=== PATIENT | female | born 1965 | race Caucasian/White ===

== ENCOUNTER 2018-03-04 14:12 | Observation (INO) | payer OTHER ==
[~2018-03-04] VITALS: Ht 162.6 cm; Wt 60.9 kg
[2018-03-04] MEDS ORDERED: ONDANSETRON INJ 2 MG/ML 2 ML VIAL IV STA (14:33)
[2018-03-04] MEDS ORDERED: SODIUM CHLORIDE 0.9% 1000ML 1,000 ML IV STA ×2 (14:33→16:37)
[2018-03-04] MEDS ORDERED: MULT-506 PO (14:51)
[2018-03-04 15:16] LABS: BASO % 0.8 %; BASO ABS # 0.05 K/uL (0-0.2); EOS % 0.2 %; EOS ABS # 0.01 K/uL (0-0.5); HEMATOCRIT 46.1 % (37-47); HEMOGLOBIN 15.8 g/dL (12.0-16.0); IG# 0.02 K/uL (0.00-0.02); LYMPH % 17.8 %; LYMPH ABS # 1.06 K/uL (1.2-3.4); MEAN CELL VOLUME 91.7 fL (80-100); MEAN CORPUSCULAR HEMOGLOBIN 31.4 pg (25-34); MEAN CORPUSCULAR HGB CONC 34.3 g/dl (32-36); MEAN PLATELET VOLUME 9.1 fL (7.4-10.4); MONO % 2.2 %; MONO ABS # 0.13 K/uL (0.11-0.59); NEUT % 78.7 %; NEUT ABS # 4.68 K/uL (1.4-6.5); PLATELET COUNT 336 K/uL (130-400); RED CELL DISTRIBUTION WIDTH CV 14.2 % (11.5-14.5); RED CELL DISTRIBUTION WIDTH SD 48.1 fL (36.4-46.3); WHITE BLOOD COUNT 5.95 K/uL (4.8-10.8)
--- NOTE | 2018-03-04 15:57 | DIAGNOSTIC IMAGING REPORT ---
ABDOMEN 2VIEW W/PA CHEST RTN CLINICAL HISTORY: Nausea and vomiting COMPARISON STUDY: No previous studies for comparison. FINDINGS: The erect chest reveals no free air. There is no focal pulmonary consolidation. There are no abnormally dilated loops of large or small bowel. There is moderate stool within the right colon. IMPRESSION: No evidence of bowel obstruction. No evidence of free air. Electronically signed by: Renny Durant M.D. 03/04/2018 3:55 PM Dictated Date/Time: 03/04/2018 3:55 PM
[2018-03-04 16:15] LABS: ALBUMIN 4.8 gm/dl (3.4-5.0); CALCIUM 8.5 mg/dl (8.5-10.1); CREATININE 0.69 mg/dl (0.60-1.20); POTASSIUM 3.8 mmol/L (3.5-5.1); TOTAL PROTEIN 8.2 gm/dl (6.4-8.2)
[2018-03-04] MEDS ORDERED: ALUMINUM/MAGNESIUM SUSP 30 ML UDC PO STA (16:53)
[2018-03-04] MEDS ORDERED: FAMOTIDINE 20MG/5ML IV PUSH IV STA (16:53)
[2018-03-04] MEDS ORDERED: ASPIRIN 325 MG ECTAB PO STA (16:53)
[2018-03-04] MEDS ORDERED: MULTI-VITAMIN INFUSION INJ 10 ML, THIAMINE HCL INJ 100 MG, FoLIC ACID INJ 1 MG in SODIU... IV ONE (17:00)
--- NOTE | 2018-03-04 17:20 | EMERGENCY ROOM VISIT NOTE ---
History Report prepared by Yari: Sampson Julio Under the Supervision of: Dr. Mitzy Becerra D.O. First contact with patient: 14:22 Chief Complaint: OTHER COMPLAINT Stated Complaint: UNDER THE INFLUENCE OF ALCOHOL, POSSIBLE POISONING History of Present Illness The patient is a 52 year old female who presents to the Emergency Room with complaints of a severe and constant migraine headache that began this morning after a long day of drinking yesterday. The patient notes that she has a history of alcohol abuse and admits that; "I am an alcoholic." She states that she stopped drinking "a lot of years ago" but decided that she was going to drink again this weekend as she was in [place] visiting family. The patient drank all day yesterday and drank a lot. 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 The patient is currently complaining of a migraine headache as well as nausea. She denies any vomiting or diarrhea. She does get migraines even when she does not drink, and has been worked up for her migraines in the past. The patient notes that she has withdrawn before and has experienced DTs. She has also used inpatient rehabilitation facilities for her alcoholism. Source of History: patient Onset: This morning Position: head Quality: ache (headache) Timing: constant Associated Symptoms: + nausea, No vomiting, No diarrhea Review of Systems See HPI for pertinent positives & negatives. A total of 10 systems reviewed and were otherwise negative. Social History Smoking Status: Never Smoker Alcohol Use: heavy Drug Use: none Housing Status: lives with family Current/Historical Medications Scheduled Multivitamin (Multivitamin), 1 TAB PO DAILY Allergies Coded Allergies: Beef (Unverified Allergy, Unknown, hive, 03/04/18) Dairy (Unverified Allergy, Unknown, gi, 03/04/18) Pork (Unverified Allergy, Unknown, hive, 03/04/18) Uncoded Allergies: NIGHTSHADE PLANTS (Allergy, Unknown, unk, 03/04/18) Physical Exam Vital Signs Date Time Temp Pulse Resp B/P (MAP) Pulse Ox O2 Delivery O2 Flow Rate FiO2 03/04/18 16:26 36.6 87 21 129/77 97 Room Air 03/04/18 16:26 36.6 87 21 129/77 97 Room Air 03/04/18 15:09 69 18 120/74 92 Room Air 7/30/18 14:16 36.9 92 18 140/90 96 Room Air Physical Exam GENERAL: alert, well appearing, well nourished, no distress, non-toxic EYE EXAM: normal conjunctiva, PERRL and EOM's grossly intact OROPHARYNX: no exudate, no erythema, lips, buccal mucosa, and tongue normal and mucous membranes are moist NECK: supple, no nuchal rigidity, no adenopathy, non-tender LUNGS: Clear to auscultation. Normal chest wall mechanics HEART: no murmurs, S1 normal and S2 normal ABDOMEN: abdomen soft, non-tender, normo-active bowel sounds, no masses, no rebound or guarding. BACK: Back is symmetrical on inspection and there is no deformity, no midline tenderness, no CVA tenderness. SKIN: no rashes and no bruising UPPER EXTREMITIES: upper extremities are grossly normal. LOWER EXTREMITIES: No pitting edema. NEURO EXAM: Normal sensorium, cranial nerves II-XII intact, normal speech, no weakness of arms, no weakness of legs. Bilateral ataxia of upper extremities. Heel to potts intact with bilateral ataxia. Gross sensation intact. Medical Decision & Procedures ER Provider Diagnostic Interpretation: Radiology results have been interpreted by the radiologist and reviewed by me. ABDOMEN 2VIEW W/PA CHEST RTN CLINICAL HISTORY: Nausea and vomiting COMPARISON STUDY: No previous studies for comparison. FINDINGS: The erect chest reveals no free air. There is no focal pulmonary consolidation. There are no abnormally dilated loops of large or small bowel. There is moderate stool within the right colon. IMPRESSION: No evidence of bowel obstruction. No evidence of free air. Electronically signed by: Renny Durant M.D. 03/04/2018 3:55 PM Dictated Date/Time: 03/04/2018 3:55 PM Laboratory Results 03/04/18 14:56 Red Blood Count 5.03, Mean Corpuscular Volume 91.7, Mean Corpuscular Hemoglobin 31.4, Mean Corpuscular Hemoglobin Concent 34.3, Mean Platelet Volume 9.1, Neutrophils (%) (Auto) 78.7, Lymphocytes (%) (Auto) 17.8, Monocytes (%) (Auto) 2.2, Eosinophils (%) (Auto) 0.2, Basophils (%) (Auto) 0.8, Neutrophils # (Auto) 4.68, Lymphocytes # (Auto) 1.06, Monocytes # (Auto) 0.13, Eosinophils # (Auto) 0.01, Basophils # (Auto) 0.05 03/04/18 14:56 Test 03/04/18 14:56 White Blood Count 5.95 K/uL (4.8-10.8) Red Blood Count 5.03 M/uL (4.2-5.4) Hemoglobin 15.8 g/dL (12.0-16.0) Hematocrit 46.1 % (37-47) Mean Corpuscular Volume 91.7 fL (80-100) Mean Corpuscular Hemoglobin 31.4 pg (25-34) Mean Corpuscular Hemoglobin Concent 34.3 g/dl (32-36) Platelet Count 336 K/uL (130-400) Mean Platelet Volume 9.1 fL (7.4-10.4) Neutrophils (%) (Auto) 78.7 % Lymphocytes (%) (Auto) 17.8 % Monocytes (%) (Auto) 2.2 % Eosinophils (%) (Auto) 0.2 % Basophils (%) (Auto) 0.8 % Neutrophils # (Auto) 4.68 K/uL (1.4-6.5) Lymphocytes # (Auto) 1.06 K/uL (1.2-3.4) Monocytes # (Auto) 0.13 K/uL (0.11-0.59) Eosinophils # (Auto) 0.01 K/uL (0-0.5) Basophils # (Auto) 0.05 K/uL (0-0.2) RDW Standard Deviation 48.1 fL (36.4-46.3) RDW Coefficient of Variation 14.2 % (11.5-14.5) Immature Granulocyte % (Auto) 0.3 % Immature Granulocyte # (Auto) 0.02 K/uL (0.00-0.02) Prothrombin Time 10.0 SECONDS (9.0-12.0) Prothromb Time International Ratio 1.0 (0.9-1.1) Anion Gap 10.0 mmol/L (3-11) Est Creatinine Clear Calc Drug Dose 80.5 ml/min Estimated GFR () 114.4 Estimated GFR (Non- 98.7 BUN/Creatinine Ratio 9.1 (10-20) Calcium Level 8.5 mg/dl (8.5-10.1) Magnesium Level 2.5 mg/dl (1.8-2.4) Total Bilirubin 0.2 mg/dl (0.2-1) Aspartate Amino Transf (AST/SGOT) 34 U/L (15-37) Alanine Aminotransferase (ALT/SGPT) 29 U/L (12-78) Alkaline Phosphatase 54 U/L (45-117) Total Creatine Kinase 186 U/L (26-192) Total Protein 8.2 gm/dl (6.4-8.2) Albumin 4.8 gm/dl (3.4-5.0) Globulin 3.4 gm/dl (2.5-4.0) Albumin/Globulin Ratio 1.4 (0.9-2) Lipase 471 U/L (73-393) Thyroid Stimulating Hormone (TSH) 0.879 uIu/ml (0.300-4.500) Ethyl Alcohol mg/dL 343.1 mg/dl (0-3) Laboratory results per my review. Medications Administered Medications (Trade) Dose Ordered Sig/Micky Route Start Time Stop Time Status Last Admin Dose Admin Sodium Chloride 1,000 ml @ 999 mls/hr Q1H1M STAT IV 03/04/18 14:33 03/04/18 15:33 DC 03/04/18 15:08 999 MLS/HR Ondansetron HCl (Zofran Inj) 4 mg NOW STAT IV 03/04/18 14:33 03/04/18 14:36 DC 03/04/18 15:08 4 MG Sodium Chloride 1,000 ml @ 999 mls/hr Q1H1M STAT IV 03/04/18 16:37 03/04/18 17:37 DC 03/04/18 16:37 999 MLS/HR Famotidine (Pepcid 20mg Iv Push) 20 mg ONE STAT IV 03/04/18 16:53 03/04/18 16:55 DC 03/04/18 17:56 20 MG Aspirin (Ecotrin Tab) 325 mg NOW STAT PO 03/04/18 16:53 03/04/18 16:55 DC 03/04/18 17:56 325 MG Al Hydroxide/Mg Hydroxide (Maalox Susp) 15 ml NOW STAT PO 03/04/18 16:53 03/04/18 16:55 DC 03/04/18 17:56 15 ML Multivitamins 10 ml/Thiamine HCl 100 mg/Folic Acid 1 mg/Sodium Chloride 1,011.2 ml @ 200 mls/ hr Q5H4M ONCE IV 03/04/18 17:00 03/04/18 22:03 DC 03/04/18 17:57 200 MLS/HR ECG Per My Interpretation Indication: toxicologic Rate (beats per minute): 74 Rhythm: normal sinus Findings: no acute ischemic change, other (normal axis, normal intervals) ED Course 1423: The patient was evaluated in room B5. A complete history and physical exam was performed. 1433: Zofran 4mg IV. Sodium Chloride 1000 ml @ 999 mls/hr IV. 1637: Sodium Chloride 1000 ml @ 999 mls/hr IV. 1646: I reevaluated the patient at this time. She is stable. She admitted to intermittent chest pain over the past 6 months that she treated with TUMS. 1653: Maalox 15 ml PO. Aspirin 325 mg PO. Pepcid 20 mg IV. 1656: Discussed the case Tova MELENDEZ-Hospitalist. She will evaluate the patient for further treatment. Medical Decision Differential diagnosis: Etiologies such as alcohol intoxication, alcohol withdrawal, trauma, dehydration , toxicologic, infection, hypoglycemia, electrolyte abnormalities, cardiac sources, intracerebral event, neurologic, as well as others were entertained. No significant evidence of acute alcohol withdrawal, patient still markedly intoxicated here. Concerned given abnormal troponin and patient's admission of intermittent chest pain over the last 6 months which she thought was related to GERD. While it is possible she has GERD/esophagitis related to her alcohol abuse, we cannot safely rule out cardiac etiology without additional testing. This was discussed with the patient and her family at bedside and she was agreeable with plan for additional evaluation and treatment by the hospitalist and likely cardiology consultation. Patient with no known risk factors for CAD. I do not suspect PE, pericarditis/myocarditis, pericardial effusion or tamponade, or occult infectious etiology. No EKG changes noted. No evidence of STEMI. Patient heme dynamically stable throughout. Case discussed with hospitalist for additional evaluation and treatment. Medication Reconcilliation Current Medication List: was personally reviewed by me Blood Pressure Screening Patient's blood pressure: Normal blood pressure Consults Time Called: 1651 Consulting Physician: Tova MELENDEZ Hospitalist Returned Call: 1655 Discussed the case Tova MELENDEZ-Hospitalist. She will evaluate the patient for further treatment. Impression Primary Impression: Chest pain Additional Impressions: Alcohol abuse Alcohol intoxication Elevated troponin Scribe Attestation The scribe's documentation has been prepared under my direction and personally reviewed by me in its entirety. I confirm that the note above accurately reflects all work, treatment, procedures, and medical decision making performed by me. Departure Information Dispostion Being Evaluated By Hospitalist Patient Instructions My [facility] Problem Qualifiers Primary Impression: Chest pain Chest pain type: unspecified Qualified Codes: R07.9 - Chest pain, unspecified Additional Impressions: Alcohol intoxication Complication of substance-induced condition: uncomplicated Qualified Codes: F10.920 - Alcohol use, unspecified with intoxication, uncomplicated
--- NOTE | 2018-03-04 17:29 | History and Physical ---
History & Physical Date & Time of Service: Mar 04, 2018 at 17:29 Chief Complaint: Under The Influence Of Alcohol, Possible Poisoning Primary Care Physician: No Doctor, Assigned History of Present Illness Source: patient, family 52 year old F with 3 days of reported binge drinking of alcohol. Reports chronic alcohol use since young age Unclear with her history whether she had passed out suddenly versus sleeping off the alcohol use Was brought to the emergency room by family members for malaise Such as migraine headache Also reported chest discomfort which she has in the pass attributed to heartburn but she is not quite sure whether this is a different chest sensation Denies family history of heart problems Denies cardiac history Normal sinus rhythm EKG and no EKG signs of ischemia x 2. However initial troponin 0.046 which is mildly above reference level Family History FH: cancer SISTER Social History Smoking Status: Never Smoker Allergies Coded Allergies: Beef (Unverified Allergy, Unknown, hive, 03/04/18) Dairy (Unverified Allergy, Unknown, gi, 03/04/18) Pork (Unverified Allergy, Unknown, hive, 03/04/18) Uncoded Allergies: NIGHTSHADE PLANTS (Allergy, Unknown, unk, 03/04/18) Home Medications Scheduled Multivitamin (Multivitamin), 1 TAB PO DAILY Review of Systems Constitutional: No fever Eyes: No worsening of vision ENT: No hearing loss Respiratory: No cough, No wheezing, No shortness of breath Cardiovascular: + chest pain, No edema, No palpitations Abdomen: No pain, No nausea, No vomiting, No diarrhea Musculoskeletal: No joint pain Genitourinary - Female: No dysuria Neurologic: No paralysis, No numbness/tingling Psychiatric: + substance abuse (binge drinking alcohol) Endocrine: No excessive thirst Hematologic / Lymphatic: No abnormal bleeding/bruising Integumentary: No rash, No itch Physical Exam Vital Signs Date Time Temp Pulse Resp B/P (MAP) Pulse Ox O2 Delivery O2 Flow Rate FiO2 03/04/18 16:26 36.6 87 21 129/77 97 Room Air 03/04/18 16:26 36.6 87 21 129/77 97 Room Air 03/04/18 15:09 69 18 120/74 92 Room Air 03/04/18 14:16 36.9 92 18 140/90 96 Room Air General Appearance: no apparent distress Head: normocephalic, atraumatic Eyes: normal inspection, EOMI, sclerae normal ENT: hearing grossly normal, pharynx normal Neck: supple, no JVD, trachea midline Respiratory/Chest: chest non-tender, lungs clear, normal breath sounds, no respiratory distress, no accessory muscle use Cardiovascular: regular rate, rhythm, no edema, no JVD, no murmur, normal peripheral pulses Abdomen/GI: normal bowel sounds, non tender, soft, no organomegaly, no pulsatile mass Back: normal inspection, no muscle spasm, normal range of motion Extremities/Musculoskelatal: normal inspection, no calf tenderness, no pedal edema 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, no motor/sensory deficits, alert, oriented x 3 Skin: normal color, warm/dry, no rash Diagnostics Laboratory Results Results Past 24 Hours Test 03/04/18 14:56 Range/Units White Blood Count 5.95 4.8-10.8 K/uL Red Blood Count 5.03 4.2-5.4 M/uL Hemoglobin 15.8 12.0-16.0 g/dL Hematocrit 46.1 37-47 % Mean Corpuscular Volume 91.7 80-100 fL Mean Corpuscular Hemoglobin 31.4 25-34 pg Mean Corpuscular Hemoglobin Concent 34.3 32-36 g/dl Platelet Count 336 130-400 K/uL Mean Platelet Volume 9.1 7.4-10.4 fL Neutrophils (%) (Auto) 78.7 % Lymphocytes (%) (Auto) 17.8 % Monocytes (%) (Auto) 2.2 % Eosinophils (%) (Auto) 0.2 % Basophils (%) (Auto) 0.8 % Neutrophils # (Auto) 4.68 1.4-6.5 K/uL Lymphocytes # (Auto) 1.06 1.2-3.4 K/uL Monocytes # (Auto) 0.13 0.11-0.59 K/uL Eosinophils # (Auto) 0.01 0-0.5 K/uL Basophils # (Auto) 0.05 0-0.2 K/uL RDW Standard Deviation 48.1 36.4-46.3 fL RDW Coefficient of Variation 14.2 11.5-14.5 % Immature Granulocyte % (Auto) 0.3 % Immature Granulocyte # (Auto) 0.02 0.00-0.02 K/uL Prothrombin Time 10.0 9.0-12.0 SECONDS Prothromb Time International Ratio 1.0 0.9-1.1 Sodium Level 141 136-145 mmol/L Potassium Level 3.8 3.5-5.1 mmol/L Chloride Level 102 98-107 mmol/L Carbon Dioxide Level 29 21-32 mmol/L Anion Gap 10.0 3-11 mmol/L Blood Urea Nitrogen 6 7-18 mg/dl Creatinine 0.69 0.60-1.20 mg/dl Est Creatinine Clear Calc Drug Dose 80.5 ml/min Estimated GFR () 114.4 Estimated GFR (Non- 98.7 BUN/Creatinine Ratio 9.1 10-20 Random Glucose 97 70-99 mg/dl Calcium Level 8.5 8.5-10.1 mg/dl Magnesium Level 2.5 1.8-2.4 mg/dl Total Bilirubin 0.2 0.2-1 mg/dl Aspartate Amino Transf (AST/SGOT) 34 15-37 U/L Alanine Aminotransferase (ALT/SGPT) 29 12-78 U/L Alkaline Phosphatase 54 45-117 U/L Troponin I 0.046 0-0.045 ng/ml Total Protein 8.2 6.4-8.2 gm/dl Albumin 4.8 3.4-5.0 gm/dl Globulin 3.4 2.5-4.0 gm/dl Albumin/Globulin Ratio 1.4 0.9-2 Lipase 471 73-393 U/L Thyroid Stimulating Hormone (TSH) 0.879 0.300-4.500 uIu/ml Ethyl Alcohol mg/dL 343.1 0-3 mg/dl Impression Assessment and Plan 52 year old F with 3 days of reported binge drinking of alcohol. Alcohol Use Alcohol withdrawal protocol with gabapentin Thiamine and Folic acid ordered when in the ED Continue IV fluids Monitor for alcohol withdrawal symptoms Chest discomfort may be from heart burn vs excessive alcohol vs palpitations vs acute coronary syndrome aspirin 325 mg given in the ED Famotidine given in ED give pantoprazole Normal sinus rhythm EKG and no EKG signs of ischemia x 2. However initial troponin 0.046 which is mildly above reference level monitor on telemetry, trend troponins Headache appears resolved DVT ppx: SCDs Full Code Emergent Contact Missy Bedolla [phone] Disposition: Observation, telemetry Resuscitation Status VTE Prophylaxis Will order VTE Prophylaxis: Yes
[2018-03-04] MEDS ORDERED: GABAPENTIN 600 MG TAB PO SCH (17:30)
[2018-03-04 19:00] VITALS: BP 120/64; PULSE 66; TEMP 36.4; O2SAT 99; Ht 162.6 cm; Wt 60.9 kg
[2018-03-04] MEDS ORDERED: IBUPROFEN 200 MG TAB PO PRN (20:00)
[2018-03-04] MEDS ORDERED: GABAPENTIN 1200MG LOADING DOSE PO SCH (20:00)
[2018-03-04] MEDS ORDERED: IV FLUIDS COMPLETED PRN (20:15)
[2018-03-04] MEDS: PANTOprazole SOD 40 MG TAB PO SCH (21:05)
[2018-03-04] MEDS ORDERED: ONDANSETRON INJ 2 MG/ML 2 ML VIAL IV PRN (22:00)
[2018-03-04] MEDS ORDERED: MoRPHine SULFATE 4 MG/ML 1 ML CARP\\VIAL IV ONE (22:45)
[2018-03-04] MEDS: SODIUM CHLORIDE 0.9% 1000ML 1,000 ML IV SCH (23:08)
[2018-03-05] VITALS: BP 121/66; PULSE 72; TEMP 37.1; O2SAT 96
[2018-03-05 03:10] VITALS: BP 112/63; PULSE 67; TEMP 36.6; O2SAT 94
[2018-03-05] MEDS ORDERED: KETOROLAC TROMETHAMINE 30 MG/ML VIAL IV ONE (03:15)
[2018-03-05] MEDS: GABAPENTIN 600MG Q6H DOSE PO SCH ×2 (06:06→11:51)
[2018-03-05 07:01] VITALS: BP 120/69; PULSE 62; TEMP 36.8; O2SAT 98
[2018-03-05 07:37] LABS: ALBUMIN 3.4 gm/dl (3.4-5.0); CALCIUM 7.8 mg/dl (8.5-10.1); CREATININE 0.64 mg/dl (0.60-1.20); POTASSIUM 3.9 mmol/L (3.5-5.1); TOTAL PROTEIN 6.1 gm/dl (6.4-8.2)
[2018-03-05] MEDS: PANTOprazole SOD 40 MG TAB PO SCH (08:47)
[2018-03-05] MEDS ORDERED: THIAMINE HCL 50 MG TAB PO SCH (09:30)
[2018-03-05 11:39] VITALS: BP 125/69; PULSE 64; TEMP 36.9; O2SAT 98
[2018-03-05] MEDS: SODIUM CHLORIDE 0.9% 1000ML 1,000 ML IV SCH (11:53)
[2018-03-05 15:33] VITALS: BP 118/64; PULSE 63; TEMP 36.9; O2SAT 95
--- NOTE | 2018-03-05 16:18 | ECHOCARDIOGRAM REPORT ---
*NOTICE TO RECEIVING [employer] This information is strictly Confidential and protected under [place] law. [place] law prohibits you from making any further disclosure of this information unless further disclosure is expressly permitted by the written consent of the person to whom it pertains or is authorized by law. A general authorization for the release of medical or other information is not sufficient for this purpose. Hospital accepts no responsibility if the information is made available to any other person, INCLUDING THE PATIENT. Interpretation Summary * Name: ANGELICA ROSALES Study Date: 03/05/2018 02:53 PM BP: 125/69 mmHg * Patient Location: C.2T\S\S244\S\1 HR: 64 * : 1965 (M/d/yyyy) Gender: Female Height: 64 in * Age: 52 yrs Ethnicity: CA Weight: 134 lb * Ordering Physician: Vic Lance * Referring Physician: Self, Referred * Performed By: Chivo Villarreal RCS * * Reason For Study: Chest Pain * BSA: 1.6 m2 * -- Conclusions -- * There is normal left ventricular wall thickness. * No regional wall motion abnormalities noted. * The calculated biplane LV ejection fraction =64% * The right ventricle is normal in size and function. * There is mild tricuspid regurgitation. * Doppler findings do not suggest pulmonary hypertension. Procedure Details * A complete two-dimensional transthoracic echocardiogram was performed (2D, M-mode, Doppler and color flow Doppler). Left Ventricle * The left ventricle is normal in size. * There is normal left ventricular wall thickness. * Left ventricular systolic function is normal. * The calculated biplane LV ejection fraction =64% * The left ventricular wall motion is normal. * No regional wall motion abnormalities noted. Right Ventricle * The right ventricle is normal in size and function. * The right ventricular systolic function is normal as assessed by tricuspid annular plane systolic excursion (TAPSE) (normal >1.5 cm). Atria * The left atrial size is normal. * Right atrial size is normal. * There is no evidence of atrial septal defect, but resolution does not allow assessment for a patent foramen ovale. Mitral Valve * The mitral valve is normal. * There is no mitral valve stenosis. * Significant mitral regurgitation is absent. Tricuspid Valve * The tricuspid valve is normal. * There is no tricuspid stenosis. * There is mild tricuspid regurgitation. * Doppler findings do not suggest pulmonary hypertension. Aortic Valve * The aortic valve is trileaflet. * Aortic stenosis is absent. * There is no significant aortic regurgitation. Pulmonic Valve * The pulmonary valve is not well seen, but the Doppler examination is normal without significant regurgitation or stenosis. Great Vessels * The aortic root and proximal ascending aorta are normal sized. Pericardium/Pleural * There is no pericardial effusion. Great Vessels * Normal inferior vena cava diameter and respiratory variation suggests normal central venous pressure. Left Ventricular Diastolic Function * The LV diastolic function is normal. MMode 2D Measurements and Calculations IVSd 0.86 cm IVSs 1.2 cm LVIDd 5.2 cm LVIDs 3.3 cm LVPWd 0.82 cm LVPWs 1.4 cm IVS/LVPW 1.0 FS 35.8 % EDV(Teich) 127.9 ml ESV(Teich) 44.7 ml EF(Teich) 65.0 % EDV(cubed) 138.3 ml ESV(cubed) 36.5 ml EF(cubed) 73.6 % % IVS thick 34.2 % % LVPW thick 64.8 % LV mass(C)d 153.8 grams LV mass(C)dI 93.2 grams/m\S\2 LV mass(C)s 135.4 grams LV mass(C)sI 82.0 grams/m\S\2 SV(Teich) 83.1 ml SI(Teich) 50.4 ml/m\S\2 SV(cubed) 101.8 ml SI(cubed) 61.7 ml/m\S\2 Ao root diam 3.5 cm Ao root area 9.6 cm\S\2 ACS 1.6 cm LA dimension 3.6 cm asc Aorta Diam 3.0 cm LA/Ao 1.0 EDV(MOD-sp4) 101.0 ml ESV(MOD-sp4) 37.0 ml EF(MOD-sp4) 63.4 % EDV(MOD-sp2) 109.0 ml ESV(MOD-sp2) 39.0 ml EF(MOD-sp2) 64.2 % SV(MOD-sp4) 64.0 ml SI(MOD-sp4) 38.8 ml/m\S\2 SV(MOD-sp2) 70.0 ml SI(MOD-sp2) 42.4 ml/m\S\2 Doppler Measurements and Calculations MV E max davion 108.7 cm/sec MV A max davion 60.0 cm/sec MV E/A 1.8 MV P1/2t max davion 93.6 cm/sec MV P1/2t 110.3 msec MVA(P1/2t) 2.0 cm\S\2 MV dec slope 248.5 cm/sec\S\2 MV dec time 0.28 sec Ao V2 max 132.7 cm/sec Ao max PG 7.0 mmHg Ao max PG (full) 2.0 mmHg LV V1 max PG 5.0 mmHg LV V1 max 111.7 cm/sec PA V2 max 89.3 cm/sec PA max PG 3.2 mmHg PI max davion 201.9 cm/sec PI max PG 16.3 mmHg PI dec slope 232.9 cm/sec\S\2 PI P1/2t 253.8 msec TR max davion 208.2 cm/sec
[2018-03-05] MEDS ORDERED: PANT40TA2 PO (16:56)
[2018-03-05] MEDS ORDERED: FLV1 PO (16:56)
[2018-03-05] MEDS ORDERED: THM50 PO (16:56)
--- NOTE | 2018-03-05 16:59 | Progress Note ---
Internal Med Progress Note Date of Service: Mar 05, 2018. Provider Documentation: SUBJECTIVE: Patient denies shortness of breath. denies abdominal pain. denies headache OBJECTIVE: General Appearance: no apparent distress Head: normocephalic, atraumatic Eyes: normal inspection, EOMI, sclerae normal ENT: hearing grossly normal, pharynx normal Neck: supple, no JVD, trachea midline Respiratory/Chest: chest non-tender, lungs clear, normal breath sounds, no respiratory distress, no accessory muscle use Cardiovascular: no edema, no JVD, no murmur, normal peripheral pulses, bradycardic to the 60 beats per minute Abdomen/GI: normal bowel sounds, non tender, soft, no organomegaly, no pulsatile mass Back: normal inspection, no muscle spasm, normal range of motion Extremities/Musculoskelatal: normal inspection, no calf tenderness, no pedal edema Neurologic/Psych: manager inside II-XII nml as tested, no motor/sensory deficits, alert, oriented x 3 Skin: normal color, warm/dry, no rash ASSESSMENT & PLAN: Hospital Course and Plans 52 year old F with 3 days of reported binge drinking of alcohol. Alcohol Use Alcohol withdrawal protocol with gabapentin Thiamine and Folic acid ordered when in the ED Continue IV fluids Monitor for alcohol withdrawal symptoms Headache appears resolved Chest discomfort aspirin 325 mg given in the ED Famotidine given in ED give pantoprazole Normal sinus rhythm EKG and no EKG signs of ischemia x 2. However initial troponin 0.046 which is mildly above reference level monitored on telemetry with no events. Subsequent troponin of 0.051, 0.056, 0.046. Third EKG non ischemic Echocardiogram Interpretation Summary * Name: ANGELICA ROSALES Study Date: 03/05/2018 02:53 PM BP: 125/69 mmHg * Patient Location: [facility]\\44\S\1 HR: 64 * : 1965 (M/d/yyyy) Gender: Female Height: 64 in * Age: 52 yrs Ethnicity: [place] Weight: 134 lb * Ordering Physician: Vic Lance * Referring Physician: Self, Referred * Performed By: Chivo Villarreal RCS * * Reason For Study: Chest Pain * BSA: 1.6 m2 * -- Conclusions -- * There is normal left ventricular wall thickness. * No regional wall motion abnormalities noted. * The calculated biplane LV ejection fraction =64% * The right ventricle is normal in size and function. * There is mild tricuspid regurgitation. * Doppler findings do not suggest pulmonary hypertension. Procedure Details * A complete two-dimensional transthoracic echocardiogram was performed (2D, M-mode, Doppler and color flow Doppler). Left Ventricle * The left ventricle is normal in size. * There is normal left ventricular wall thickness. * Left ventricular systolic function is normal. * The calculated biplane LV ejection fraction =64% * The left ventricular wall motion is normal. * No regional wall motion abnormalities noted. Right Ventricle * The right ventricle is normal in size and function. * The right ventricular systolic function is normal as assessed by tricuspid annular plane systolic excursion (TAPSE) (normal >1.5 cm). Atria * The left atrial size is normal. * Right atrial size is normal. * There is no evidence of atrial septal defect, but resolution does not allow assessment for a patent foramen ovale. Mitral Valve * The mitral valve is normal. * There is no mitral valve stenosis. * Significant mitral regurgitation is absent. Tricuspid Valve * The tricuspid valve is normal. * There is no tricuspid stenosis. * There is mild tricuspid regurgitation. * Doppler findings do not suggest pulmonary hypertension. Aortic Valve * The aortic valve is trileaflet. * Aortic stenosis is absent. * There is no significant aortic regurgitation. Pulmonic Valve * The pulmonary valve is not well seen, but the Doppler examination is normal without significant regurgitation or stenosis. Great Vessels * The aortic root and proximal ascending aorta are normal sized. Pericardium/Pleural * There is no pericardial effusion. Great Vessels * Normal inferior vena cava diameter and respiratory variation suggests normal central venous pressure. Left Ventricular Diastolic Function * The LV diastolic function is normal. MMode 2D Measurements and Calculations IVSd 0.86 cm IVSs 1.2 cm LVIDd 5.2 cm LVIDs 3.3 cm LVPWd 0.82 cm LVPWs 1.4 cm IVS/LVPW 1.0 FS 35.8 % EDV(Teich) 127.9 ml ESV(Teich) 44.7 ml EF(Teich) 65.0 % EDV(cubed) 138.3 ml ESV(cubed) 36.5 ml EF(cubed) 73.6 % % IVS thick 34.2 % % LVPW thick 64.8 % LV mass(C)d 153.8 grams LV mass(C)dI 93.2 grams/m\S\2 LV mass(C)s 135.4 grams LV mass(C)sI 82.0 grams/m\S\2 SV(Teich) 83.1 ml SI(Teich) 50.4 ml/m\S\2 SV(cubed) 101.8 ml SI(cubed) 61.7 ml/m\S\2 Ao root diam 3.5 cm Ao root area 9.6 cm\S\2 ACS 1.6 cm LA dimension 3.6 cm asc Aorta Diam 3.0 cm LA/Ao 1.0 EDV(MOD-sp4) 101.0 ml ESV(MOD-sp4) 37.0 ml EF(MOD-sp4) 63.4 % EDV(MOD-sp2) 109.0 ml ESV(MOD-sp2) 39.0 ml EF(MOD-sp2) 64.2 % SV(MOD-sp4) 64.0 ml SI(MOD-sp4) 38.8 ml/m\S\2 SV(MOD-sp2) 70.0 ml SI(MOD-sp2) 42.4 ml/m\S\2 Doppler Measurements and Calculations MV E max davion 108.7 cm/sec MV A max davion 60.0 cm/sec MV E/A 1.8 MV P1/2t max davion 93.6 cm/sec MV P1/2t 110.3 msec MVA(P1/2t) 2.0 cm\S\2 MV dec slope 248.5 cm/sec\S\2 MV dec time 0.28 sec Ao V2 max 132.7 cm/sec Ao max PG 7.0 mmHg Ao max PG (full) 2.0 mmHg LV V1 max PG 5.0 mmHg LV V1 max 111.7 cm/sec PA V2 max 89.3 cm/sec PA max PG 3.2 mmHg PI max davion 201.9 cm/sec PI max PG 16.3 mmHg PI dec slope 232.9 cm/sec\S\2 PI P1/2t 253.8 msec TR max davion 208.2 cm/sec Patient's chest discomfort symptoms likely due to gastric reflux disease No arrhythmia were identified Despite mildly elevated troponins there is no echocardiogram or EKG evidence to support ischemic heart disease Discharge Diagnosis Excessive alcohol use non cardiac chest pain Gastric esophageal reflux disease (GERD) Discharge Instructions Patient to be discharged to home and should follow up with primary care doctor Patient should limit alcohol use Patient given prescription for pantoprazole for Gastric esophageal reflux disease (GERD) and vitamins of thiamine and folic acid Vital Signs: Date Time Temp Pulse Resp B/P (MAP) Pulse Ox O2 Delivery O2 Flow Rate FiO2 03/05/18 15:33 36.9 63 18 118/64 (82) 95 03/05/18 15:20 Room Air 03/05/18 11:39 36.9 64 18 125/69 (87) 98 Room Air 03/05/18 09:46 Room Air 03/05/18 07:01 36.8 62 16 120/69 (86) 98 Room Air 03/05/18 03:10 36.6 67 16 112/63 (79) 94 Room Air 03/05/18 00:00 37.1 72 18 121/66 (84) 96 Room Air 03/04/18 20:00 Room Air 03/04/18 19:00 36.4 66 16 120/64 99 Room Air 03/04/18 18:47 36.6 88 22 125/88 97 Lab Results: Results Past 24 Hours Test 03/04/18 20:00 03/04/18 20:49 03/05/18 06:32 03/05/18 12:31 Range/Units Urine Color YELLOW Urine Appearance CLEAR CLEAR Urine pH 6.0 4.5-7.5 Urine Specific [place] 1.014 1.000-1.030 Urine Protein NEG NEG Urine Glucose (UA) NEG NEG Urine Ketones NEG NEG Urine Occult Blood NEG NEG Urine Nitrite NEG NEG Urine Bilirubin NEG NEG Urine Urobilinogen NEG NEG Urine Leukocyte Esterase TRACE NEG Urine WBC (Auto) 5-10 0-5 /hpf Urine RBC (Auto) 0-4 0-4 /hpf Urine Hyaline Casts (Auto) 1-5 0-5 /lpf Urine Epithelial Cells (Auto) 10-20 0-5 /lpf Urine Bacteria (Auto) NEG NEG Urine Opiates Screen NEG NEG Urine Methadone, Qualitative NEG NEG Urine Barbiturates NEG NEG Urine Phencyclidine (PCP) Level NEG NEG Ur Amphetamine/Methamphetamine NEG NEG MDMA (Ecstasy) Screen NEG NEG Urine Benzodiazepines Screen NEG NEG Urine Cocaine Metabolite NEG NEG Urine Marijuana (THC) NEG NEG Troponin I 0.051 0.055 0.046 0-0.045 ng/ml Sodium Level 136 136-145 mmol/L Potassium Level 3.9 3.5-5.1 mmol/L Chloride Level 103 98-107 mmol/L Carbon Dioxide Level 25 21-32 mmol/L Anion Gap 8.0 3-11 mmol/L Blood Urea Nitrogen 8 7-18 mg/dl Creatinine 0.64 0.60-1.20 mg/dl Est Creatinine Clear Calc Drug Dose 86.8 ml/min Estimated GFR () 117.3 Estimated GFR (Non- 101.2 BUN/Creatinine Ratio 12.0 10-20 Random Glucose 83 70-99 mg/dl Calcium Level 7.8 8.5-10.1 mg/dl Total Bilirubin 0.7 0.2-1 mg/dl Aspartate Amino Transf (AST/SGOT) 25 15-37 U/L Alanine Aminotransferase (ALT/SGPT) 21 12-78 U/L Alkaline Phosphatase 41 45-117 U/L Total Protein 6.1 6.4-8.2 gm/dl Albumin 3.4 3.4-5.0 gm/dl Globulin 2.7 2.5-4.0 gm/dl Albumin/Globulin Ratio 1.3 0.9-2 Lipase 254 73-393 U/L
--- NOTE | 2018-03-05 17:09 | Discharge Instructions ---
Discharge Instructions Date of Service Mar 05, 2018. Admission Reason for Admission: Alcohol Abuse, Chest Pain, Elevated Troponin Discharge Discharge Diagnosis / Problem: excessive alcohol use, non cardiac chest pain, Gastric esophageal reflux Discharge Goals Goal(s): Decrease discomfort, Improve function, Improve disease control Activity Recommendations Activity Limitations: per Instructions/Follow-up section reduce alcohol use Instructions / Follow-Up Instructions / Follow-Up Hospital Course and Plans 52 year old F with 3 days of reported binge drinking of alcohol. Alcohol Use Alcohol withdrawal protocol with gabapentin Thiamine and Folic acid ordered when in the ED Continue IV fluids Monitor for alcohol withdrawal symptoms Headache appears resolved Chest discomfort aspirin 325 mg given in the ED Famotidine given in ED give pantoprazole Normal sinus rhythm EKG and no EKG signs of ischemia x 2. However initial troponin 0.046 which is mildly above reference level monitored on telemetry with no events. Subsequent troponin of 0.051, 0.056, 0.046. Third EKG non ischemic Echocardiogram Interpretation Summary * Name: ANGELICA ROSALES Study Date: 03/05/2018 02:53 PM BP: 125/69 mmHg * Patient Location: [facility]\\\\44\\S\\1 HR: 64 * : 1965 (M/d/yyyy) Gender: Female Height: 64 in * Age: 52 yrs Ethnicity: [place] Weight: 134 lb * Ordering Physician: Vic Lance * Referring Physician: Self, Referred * Performed By: Chivo Villarreal RCS * * Reason For Study: Chest Pain * BSA: 1.6 m2 * -- Conclusions -- * There is normal left ventricular wall thickness. * No regional wall motion abnormalities noted. * The calculated biplane LV ejection fraction =64% * The right ventricle is normal in size and function. * There is mild tricuspid regurgitation. * Doppler findings do not suggest pulmonary hypertension. Procedure Details * A complete two-dimensional transthoracic echocardiogram was performed (2D, M-mode, Doppler and color flow Doppler). Left Ventricle * The left ventricle is normal in size. * There is normal left ventricular wall thickness. * Left ventricular systolic function is normal. * The calculated biplane LV ejection fraction =64% * The left ventricular wall motion is normal. * No regional wall motion abnormalities noted. Right Ventricle * The right ventricle is normal in size and function. * The right ventricular systolic function is normal as assessed by tricuspid annular plane systolic excursion (TAPSE) (normal >1.5 cm). Atria * The left atrial size is normal. * Right atrial size is normal. * There is no evidence of atrial septal defect, but resolution does not allow assessment for a patent foramen ovale. Mitral Valve * The mitral valve is normal. * There is no mitral valve stenosis. * Significant mitral regurgitation is absent. Tricuspid Valve * The tricuspid valve is normal. * There is no tricuspid stenosis. * There is mild tricuspid regurgitation. * Doppler findings do not suggest pulmonary hypertension. Aortic Valve * The aortic valve is trileaflet. * Aortic stenosis is absent. * There is no significant aortic regurgitation. Pulmonic Valve * The pulmonary valve is not well seen, but the Doppler examination is normal without significant regurgitation or stenosis. Great Vessels * The aortic root and proximal ascending aorta are normal sized. Pericardium/Pleural * There is no pericardial effusion. Great Vessels * Normal inferior vena cava diameter and respiratory variation suggests normal central venous pressure. Left Ventricular Diastolic Function * The LV diastolic function is normal. MMode 2D Measurements and Calculations IVSd 0.86 cm IVSs 1.2 cm LVIDd 5.2 cm LVIDs 3.3 cm LVPWd 0.82 cm LVPWs 1.4 cm IVS/LVPW 1.0 FS 35.8 % EDV(Teich) 127.9 ml ESV(Teich) 44.7 ml EF(Teich) 65.0 % EDV(cubed) 138.3 ml ESV(cubed) 36.5 ml EF(cubed) 73.6 % % IVS thick 34.2 % % LVPW thick 64.8 % LV mass(C)d 153.8 grams LV mass(C)dI 93.2 grams/m\\S\\2 LV mass(C)s 135.4 grams LV mass(C)sI 82.0 grams/m\\S\\2 SV(Teich) 83.1 ml SI(Teich) 50.4 ml/m\\S\\2 SV(cubed) 101.8 ml SI(cubed) 61.7 ml/m\\S\\2 Ao root diam 3.5 cm Ao root area 9.6 cm\\S\\2 ACS 1.6 cm LA dimension 3.6 cm asc Aorta Diam 3.0 cm LA/Ao 1.0 EDV(MOD-sp4) 101.0 ml ESV(MOD-sp4) 37.0 ml EF(MOD-sp4) 63.4 % EDV(MOD-sp2) 109.0 ml ESV(MOD-sp2) 39.0 ml EF(MOD-sp2) 64.2 % SV(MOD-sp4) 64.0 ml SI(MOD-sp4) 38.8 ml/m\\S\\2 SV(MOD-sp2) 70.0 ml SI(MOD-sp2) 42.4 ml/m\\S\\2 Doppler Measurements and Calculations MV E max davion 108.7 cm/sec MV A max davion 60.0 cm/sec MV E/A 1.8 MV P1/2t max davion 93.6 cm/sec MV P1/2t 110.3 msec MVA(P1/2t) 2.0 cm\\S\\2 MV dec slope 248.5 cm/sec\\S\\2 MV dec time 0.28 sec Ao V2 max 132.7 cm/sec Ao max PG 7.0 mmHg Ao max PG (full) 2.0 mmHg LV V1 max PG 5.0 mmHg LV V1 max 111.7 cm/sec PA V2 max 89.3 cm/sec PA max PG 3.2 mmHg PI max davion 201.9 cm/sec PI max PG 16.3 mmHg PI dec slope 232.9 cm/sec\\S\\2 PI P1/2t 253.8 msec TR max davion 208.2 cm/sec Patient's chest discomfort symptoms likely due to gastric reflux disease No arrhythmia were identified Despite mildly elevated troponins there is no echocardiogram or EKG evidence to support ischemic heart disease Discharge Diagnosis Excessive alcohol use non cardiac chest pain Gastric esophageal reflux disease (GERD) Discharge Instructions Patient to be discharged to home and should follow up with primary care doctor Patient should limit alcohol use Patient given prescription for pantoprazole for Gastric esophageal reflux disease (GERD) and vitamins of thiamine and folic acid Current Hospital Diet Patient's current hospital diet: Clear Liquid Diet Discharge Diet Recommended Diet: Regular Diet Pending Studies Studies pending at discharge: no Laboratory Results 03/04/18 14:56 Red Blood Count 5.03, Mean Corpuscular Volume 91.7, Mean Corpuscular Hemoglobin 31.4, Mean Corpuscular Hemoglobin Concent 34.3, Mean Platelet Volume 9.1, Neutrophils (%) (Auto) 78.7, Lymphocytes (%) (Auto) 17.8, Monocytes (%) (Auto) 2.2, Eosinophils (%) (Auto) 0.2, Basophils (%) (Auto) 0.8, Neutrophils # (Auto) 4.68, Lymphocytes # (Auto) 1.06, Monocytes # (Auto) 0.13, Eosinophils # (Auto) 0.01, Basophils # (Auto) 0.05 03/05/18 06:32 Test 03/04/18 14:56 03/04/18 20:00 03/05/18 06:32 03/05/18 12:31 White Blood Count 5.95 K/uL (4.8-10.8) Red Blood Count 5.03 M/uL (4.2-5.4) Hemoglobin 15.8 g/dL (12.0-16.0) Hematocrit 46.1 % (37-47) Mean Corpuscular Volume 91.7 fL (80-100) Mean Corpuscular Hemoglobin 31.4 pg (25-34) Mean Corpuscular Hemoglobin Concent 34.3 g/dl (32-36) Platelet Count 336 K/uL (130-400) Mean Platelet Volume 9.1 fL (7.4-10.4) Neutrophils (%) (Auto) 78.7 % Lymphocytes (%) (Auto) 17.8 % Monocytes (%) (Auto) 2.2 % Eosinophils (%) (Auto) 0.2 % Basophils (%) (Auto) 0.8 % Neutrophils # (Auto) 4.68 K/uL (1.4-6.5) Lymphocytes # (Auto) 1.06 K/uL (1.2-3.4) Monocytes # (Auto) 0.13 K/uL (0.11-0.59) Eosinophils # (Auto) 0.01 K/uL (0-0.5) Basophils # (Auto) 0.05 K/uL (0-0.2) RDW Standard Deviation 48.1 fL (36.4-46.3) RDW Coefficient of Variation 14.2 % (11.5-14.5) Immature Granulocyte % (Auto) 0.3 % Immature Granulocyte # (Auto) 0.02 K/uL (0.00-0.02) Prothrombin Time 10.0 SECONDS (9.0-12.0) Prothromb Time International Ratio 1.0 (0.9-1.1) Magnesium Level 2.5 mg/dl (1.8-2.4) Total Creatine Kinase 186 U/L (26-192) Thyroid Stimulating Hormone (TSH) 0.879 uIu/ml (0.300-4.500) Ethyl Alcohol mg/dL 343.1 mg/dl (0-3) Urine Color YELLOW Urine Appearance CLEAR (CLEAR) Urine pH 6.0 (4.5-7.5) Urine Specific [place] 1.014 (1.000-1.030) Urine Protein NEG (NEG) Urine Glucose (UA) NEG (NEG) Urine Ketones NEG (NEG) Urine Occult Blood NEG (NEG) Urine Nitrite NEG (NEG) Urine Bilirubin NEG (NEG) Urine Urobilinogen NEG (NEG) Urine Leukocyte Esterase TRACE (NEG) Urine WBC (Auto) 5-10 /hpf (0-5) Urine RBC (Auto) 0-4 /hpf (0-4) Urine Hyaline Casts (Auto) 1-5 /lpf (0-5) Urine Epithelial Cells (Auto) 10-20 /lpf (0-5) Urine Bacteria (Auto) NEG (NEG) Urine Opiates Screen NEG (NEG) Urine Methadone, Qualitative NEG (NEG) Urine Barbiturates NEG (NEG) Urine Phencyclidine (PCP) Level NEG (NEG) Ur Amphetamine/Methamphetamine NEG (NEG) MDMA (Ecstasy) Screen NEG (NEG) Urine Benzodiazepines Screen NEG (NEG) Urine Cocaine Metabolite NEG (NEG) Urine Marijuana (THC) NEG (NEG) Anion Gap 8.0 mmol/L (3-11) Est Creatinine Clear Calc Drug Dose 86.8 ml/min Estimated GFR () 117.3 Estimated GFR (Non- 101.2 BUN/Creatinine Ratio 12.0 (10-20) Calcium Level 7.8 mg/dl (8.5-10.1) Total Bilirubin 0.7 mg/dl (0.2-1) Aspartate Amino Transf (AST/SGOT) 25 U/L (15-37) Alanine Aminotransferase (ALT/SGPT) 21 U/L (12-78) Alkaline Phosphatase 41 U/L (45-117) Total Protein 6.1 gm/dl (6.4-8.2) Albumin 3.4 gm/dl (3.4-5.0) Globulin 2.7 gm/dl (2.5-4.0) Albumin/Globulin Ratio 1.3 (0.9-2) Lipase 254 U/L (73-393) Troponin I 0.046 ng/ml (0-0.045) Medical Emergencies . Who to Call and When: Medical Emergencies: If at any time you feel your situation is an emergency, please call 911 immediately. . Non-Emergent Contact Non-Emergency issues call your: Primary Care Provider Call Non-Emergent contact if: you have any medication questions . . "Provider Documentation" section prepared by Vic Lance. .
--- NOTE | 2018-03-05 17:11 | Discharge Summary ---
Discharge Summary Date of Service Mar 05, 2018. Discharge Summary Admission Date: Mar 04, 2018 at 17:32 Discharge Date: Mar 05, 2018 Discharge Disposition: Home Principal Diagnosis: excessive alcohol use (alcohol abuse) non cardiac chest pain gastric esophageal reflux disease (GERD) Medication Reconciliation New Medications: Folic Acid (Folic Acid) 1 Mg Tab 1 MG PO QAM for 30 Days, #30 TAB Pantoprazole (Pantoprazole Sodium) 40 Mg Tab 40 MG PO DAILY for 30 Days, #30 TAB Thiamine HCl (Vitamin B-1) 50 Mg Tab 50 MG PO QAM for 30 Days, #30 TAB Continued Medications: Multivitamin (Multivitamin) Tab 1 TAB PO DAILY, TAB Admission Information HPI (per Admitting provider): 52 year old F with 3 days of reported binge drinking of alcohol. Reports chronic alcohol use since young age Unclear with her history whether she had passed out suddenly versus sleeping off the alcohol use Was brought to the emergency room by family members for malaise Such as migraine headache Also reported chest discomfort which she has in the pass attributed to heartburn but she is not quite sure whether this is a different chest sensation Denies family history of heart problems Denies cardiac history Normal sinus rhythm EKG and no EKG signs of ischemia x 2. However initial troponin 0.046 which is mildly above reference level Physical Exam (per Admitting): General Appearance: no apparent distress Head: normocephalic, atraumatic Eyes: normal inspection, EOMI, sclerae normal ENT: hearing grossly normal, pharynx normal Neck: supple, no JVD, trachea midline Respiratory/Chest: chest non-tender, lungs clear, normal breath sounds, no respiratory distress, no accessory muscle use Cardiovascular: regular rate, rhythm, no edema, no JVD, no murmur, normal peripheral pulses Abdomen/GI: normal bowel sounds, non tender, soft, no organomegaly, no pulsatile mass Back: normal inspection, no muscle spasm, normal range of motion Extremities/Musculoskelatal: normal inspection, no calf tenderness, no pedal edema Neurologic/Psych: superintendent general II-XII nml as tested, no motor/sensory deficits, alert , oriented x 3 Skin: normal color, warm/dry, no rash Hospital Course Hospital Course and Plans 52 year old F with 3 days of reported binge drinking of alcohol. Alcohol Use Alcohol withdrawal protocol with gabapentin Thiamine and Folic acid ordered when in the ED Continue IV fluids Monitor for alcohol withdrawal symptoms Headache appears resolved Chest discomfort aspirin 325 mg given in the ED Famotidine given in ED give pantoprazole Normal sinus rhythm EKG and no EKG signs of ischemia x 2. However initial troponin 0.046 which is mildly above reference level monitored on telemetry with no events. Subsequent troponin of 0.051, 0.056, 0.046. Third EKG non ischemic Echocardiogram Interpretation Summary * Name: ANGELICA ROSALES Study Date: 03/05/2018 02:53 PM BP: 125/69 mmHg * Patient Location: 2T\S\S244\S\1 HR: 64 * : 1965 (M/d/yyyy) Gender: Female Height: 64 in * Age: 52 yrs Ethnicity: CA Weight: 134 lb * Ordering Physician: Vic Lance * Referring Physician: Self, Referred * Performed By: Chivo Villarreal RCS * * Reason For Study: Chest Pain * BSA: 1.6 m2 * -- Conclusions -- * There is normal left ventricular wall thickness. * No regional wall motion abnormalities noted. * The calculated biplane LV ejection fraction =64% * The right ventricle is normal in size and function. * There is mild tricuspid regurgitation. * Doppler findings do not suggest pulmonary hypertension. Procedure Details * A complete two-dimensional transthoracic echocardiogram was performed (2D, M-mode, Doppler and color flow Doppler). Left Ventricle * The left ventricle is normal in size. * There is normal left ventricular wall thickness. * Left ventricular systolic function is normal. * The calculated biplane LV ejection fraction =64% * The left ventricular wall motion is normal. * No regional wall motion abnormalities noted. Right Ventricle * The right ventricle is normal in size and function. * The right ventricular systolic function is normal as assessed by tricuspid annular plane systolic excursion (TAPSE) (normal >1.5 cm). Atria * The left atrial size is normal. * Right atrial size is normal. * There is no evidence of atrial septal defect, but resolution does not allow assessment for a patent foramen ovale. Mitral Valve * The mitral valve is normal. * There is no mitral valve stenosis. * Significant mitral regurgitation is absent. Tricuspid Valve * The tricuspid valve is normal. * There is no tricuspid stenosis. * There is mild tricuspid regurgitation. * Doppler findings do not suggest pulmonary hypertension. Aortic Valve * The aortic valve is trileaflet. * Aortic stenosis is absent. * There is no significant aortic regurgitation. Pulmonic Valve * The pulmonary valve is not well seen, but the Doppler examination is normal without significant regurgitation or stenosis. Great Vessels * The aortic root and proximal ascending aorta are normal sized. Pericardium/Pleural * There is no pericardial effusion. Great Vessels * Normal inferior vena cava diameter and respiratory variation suggests normal central venous pressure. Left Ventricular Diastolic Function * The LV diastolic function is normal. MMode 2D Measurements and Calculations IVSd 0.86 cm IVSs 1.2 cm LVIDd 5.2 cm LVIDs 3.3 cm LVPWd 0.82 cm LVPWs 1.4 cm IVS/LVPW 1.0 FS 35.8 % EDV(Teich) 127.9 ml ESV(Teich) 44.7 ml EF(Teich) 65.0 % EDV(cubed) 138.3 ml ESV(cubed) 36.5 ml EF(cubed) 73.6 % % IVS thick 34.2 % % LVPW thick 64.8 % LV mass(C)d 153.8 grams LV mass(C)dI 93.2 grams/m\S\2 LV mass(C)s 135.4 grams LV mass(C)sI 82.0 grams/m\S\2 SV(Teich) 83.1 ml SI(Teich) 50.4 ml/m\S\2 SV(cubed) 101.8 ml SI(cubed) 61.7 ml/m\S\2 Ao root diam 3.5 cm Ao root area 9.6 cm\S\2 ACS 1.6 cm LA dimension 3.6 cm asc Aorta Diam 3.0 cm LA/Ao 1.0 EDV(MOD-sp4) 101.0 ml ESV(MOD-sp4) 37.0 ml EF(MOD-sp4) 63.4 % EDV(MOD-sp2) 109.0 ml ESV(MOD-sp2) 39.0 ml EF(MOD-sp2) 64.2 % SV(MOD-sp4) 64.0 ml SI(MOD-sp4) 38.8 ml/m\S\2 SV(MOD-sp2) 70.0 ml SI(MOD-sp2) 42.4 ml/m\S\2 Doppler Measurements and Calculations MV E max davion 108.7 cm/sec MV A max davion 60.0 cm/sec MV E/A 1.8 MV P1/2t max davion 93.6 cm/sec MV P1/2t 110.3 msec MVA(P1/2t) 2.0 cm\S\2 MV dec slope 248.5 cm/sec\S\2 MV dec time 0.28 sec Ao V2 max 132.7 cm/sec Ao max PG 7.0 mmHg Ao max PG (full) 2.0 mmHg LV V1 max PG 5.0 mmHg LV V1 max 111.7 cm/sec PA V2 max 89.3 cm/sec PA max PG 3.2 mmHg PI max davion 201.9 cm/sec PI max PG 16.3 mmHg PI dec slope 232.9 cm/sec\S\2 PI P1/2t 253.8 msec TR max davion 208.2 cm/sec Patient's chest discomfort symptoms likely due to gastric reflux disease No arrhythmia were identified Despite mildly elevated troponins there is no echocardiogram or EKG evidence to support ischemic heart disease Discharge Diagnosis Excessive alcohol use non cardiac chest pain Gastric esophageal reflux disease (GERD) Discharge Instructions Patient to be discharged to home and should follow up with primary care doctor Patient should limit alcohol use Patient given prescription for pantoprazole for Gastric esophageal reflux disease (GERD) and vitamins of thiamine and folic acid Total time spent on discharge = 40 minutes This includes examination of the patient, discharge planning, medication reconciliation, and communication with other providers. Discharge Instructions Discharge Diagnosis Excessive alcohol use non cardiac chest pain Gastric esophageal reflux disease (GERD) Discharge Instructions Patient to be discharged to home and should follow up with primary care doctor Patient should limit alcohol use Patient given prescription for pantoprazole for Gastric esophageal reflux disease (GERD) and vitamins of thiamine and folic acid
[2018-03-05 17:21] VITALS: BP 118/64; PULSE 63; TEMP 36.9; O2SAT 95
[2018-03-05] MEDS ORDERED: GABAPENTIN 600MG Q8H DOSE PO SCH (22:00)
[2018-03-06] MEDS ORDERED: GABAPENTIN 600MG Q12H DOSE PO SCH
[2018-03-07] MEDS ORDERED: GABAPENTIN 600MG X1 DOSE PO SCH (12:00)
== END 2018-03-05 17:51 | disposition home or self-care (01) ==
LOC: C.EDB 14:17 → C.2T 17:32 → ENRESERV 18:14
PROVIDERS: ADMIT Hospitalist; ATTEND Hospitalist
DX: F10.10 Alcohol abuse, uncomplicated (principal); R07.89 Other chest pain; K21.9 Gastro-esophageal reflux disease without esophagitis; Z79.899 Other long term (current) drug therapy; Z91.018 Allergy to other foods; Z91.011 Allergy to milk products